=== PATIENT | male | born 1980 | race Caucasian/White ===

== ENCOUNTER 2024-05-07 00:32 | Emergency (ER) | payer SELFPAY ==
[~2024-05-07] VITALS: Ht 175.3 cm; Wt 77.1 kg
[2024-05-07 01:15] VITALS: BP 132/97; PULSE 53; RESP 18; TEMP 97.8; O2SAT 100
[2024-05-07 01:59] LABS: HEMATOCRIT(ML) 47.6 % (37.0-53.0); HEMOGLOBIN 15.7 g/dL (13.9-16.3); MEAN CORP HGB 31.3 pg (26-34); RED BLOOD CELL 5.01 10^6/uL (4.50-5.90); RED CELL DISTRIBUTION WIDTH 13.7 % (11.5-14.5); WHITE BLOOD CELL 9.7 10^3/uL (4.5-11.0)
[2024-05-07 02:05] VITALS: BP 151/92; PULSE 48; RESP 18; O2SAT 100
[2024-05-07 02:19] LABS: ANION GAP 12.2; BUN/CREATININE RATIO 11.34 (10.0-20.0); CALCIUM 8.4 mg/dL (8.4-10.5); CARBON DIOXIDE 29.5 mmol/L (20.0-32); CREATININE SERUM 0.97 mg/dL (0.59-1.40); EST GFR, NON-AA 84.9 (>/=60); POTASSIUM 3.7 mmol/L (3.6-5.2)
[2024-05-07 02:38] VITALS: BP 120/74; PULSE 56; RESP 18; O2SAT 100
== END 2024-05-07 02:39 | disposition home or self-care (01) ==
LOC: ER 00:32
DX: R03.0 Elevated blood-pressure reading, without diagnosis of hypertension (principal)
CPT/HCPCS: 36415; 80048; 84484; 85027; 93005; 99284